=== PATIENT | female | born 2000 | race Caucasian/White ===

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

== ENCOUNTER → 2018-01-09 08:29 | Outpatient (CLI) | payer OTHER, SELFPAY ==
--- NOTE | 2018-01-09 11:55 | TONS_PTH ---
PATIENT: JOSE LUIS AGUILAR LOC: [facility] U#:[id number] AGE/SX: 25/F ROOM: RE01/09/[address]: Dr. Mauricio Voss MD : 2000 BED: DIS: SPEC #: [id number] RECD: 01/09/18 14:56 STATUS: AUGUSTO VERONICA #: [id number] ANTONIO: 01/09/18 11:[address]: Mauricio Voss DEPT: SURGICAL PATHOLOGY RECD BY: Caridad Bowden ENTERED: 01/10/18 09:19 SP TYPE: TONSILS OTHR DR: Dr. Lucio Naik MD [facility] Tissues: Tonsil, NOS Procedures: Surgery Specimen Level III HEADER OPERATION: Tonsillectomy PRE-OP DIAGNOSIS: Peritonsillar abscess, hypertrophy of tonsils, chronic tonsillitis TISSUE SUBMITTED: Tonsils (right tagged with pin) MICROSCOPIC DIAGNOSIS Bilateral tonsils: Reactive lymphoid hyperplasia, consistent with chronic tonsillitis. Focal actinomyces colonization. See comment. DEMARIO:[email or web address] 01/10/18 COMMENT Focal superficial acute inflammation is also noted. MICROSCOPIC DESCRIPTION Slides are reviewed. GROSS DESCRIPTION Received is one container labeled with the patient's name and designated tonsils - pin on right are two tonsils that in aggregate weigh 15.7 gm. The right tonsil has a pin on it and measures 3.5 x 3 x 2 cm. The left tonsil measures 3.8 x 3 x 2 cm. Both tonsils are similar in appearance. The external surfaces are pink-prince, smooth, glistening and somewhat lobulated. Focally they are hemorrhagic, granular and bear cautery artifact. Serial cross sections through the tonsils reveal normal tonsillar architecture. Sections are submitted in two cassettes as follows: 1 - right tonsil, 2 - left tonsil. / DEMARIO:[email or web address] 01/09/18 TC:3 CPT: 74834 x2
== END ==
PROVIDERS: Family Provider Pediatrics; PCP Pediatrics; Visit Provider Otolaryngology
DX: J36 Peritonsillar abscess (principal); J35.01 Chronic tonsillitis
CPT/HCPCS: 88304

== ENCOUNTER 2019-03-16 11:10 | Emergency (ER) | payer OTHER, SELFPAY ==
[2019-03-16 11:12] VITALS: BP 146/98; PULSE 112; RESP 20; TEMP 37.1; O2SAT 98; BMI 33.3
--- NOTE | 2019-03-16 11:17 | ED.RN ---
PER FRIEND AT BEDSIDE HER MOM SAID THAT SHE HAS ACTED THIS WAY WHEN SHE HAS BEEN REALLY DEHYDRATED.
--- NOTE | 2019-03-16 11:29 | ED.RN ---
PER MOM, SHE HAS HAD MULTIPLE EPISODES OFF THIS OCCURRING. IT ONLY HAPPENS WHEN SHE IS DEHYDRATED. WE HAVE BEEN TO MULTIPLE DOCTORS TO INVESTIGATE THIS AND NOTHING SHOWS UP. SHE HAS NOT HAD AN EPISODE IN OVER A YEAR. PER EMS PT BG WAS 90.
--- NOTE | 2019-03-16 11:37 | ED.VISSUMM ---
- ER Visit Summary Date of Service: 03/16/19 Chief Complaint: Decreased responsiveness History of Present Illness: The patient is a 18 F no significant past medical history. According to mom she had problems with dehydration in the past 2 years. Extensive work-up done at the [facility] as an outpatient for similar episodes like she is having a daily she has become less recent onset and will speak and they had a negative work-up she had negative CAT scans of her brain with a negative cardiac work-up along with other tests. Mom states whenever this happens it seems like she is dehydrated. She was at work today and just became less interactive. She had no head injury. She is been eating and drinking well. She has had no nausea, vomiting, diarrhea or fever. She is on no diuretics. Fact the only medication she is on is control. Physical Examination: Young female no acute distress. Vital signs are stable she is afebrile. She does not look septic or toxic. She is in no distress. Clinically she does not look dehydrated. HEENT exam normal. Tongue moist mucous membranes. No trauma or bite garcia. Face normal. Neck nontender no meningismus no lymphadenopathy. Lungs clear to auscultation bilaterally. Heart regular rhythm no murmur. Abdomen soft and nontender. Extremities moves all 4. Calves nontender without edema. She is moving all 4 extremities. Neurologically she is awake and alert. Her eyes are open. She has no focal motor deficits. She will respond to asked specific questions or made to respond but otherwise she is kind of stares looking forward. Clinically I do not feel this is a seizure or postictal state. Test Results: CBC showed a white count 13.5. Hemoglobin 13. No bands. Electrolytes unremarkable gap is 6. Creatinine 0.8 with a normal BUN of 15. No signs of dehydration. Blood sugar slightly low at 70. Emergency Department Course and Treatment: Mom believes this is secondary to dehydration. Clinically she has no reason to be dehydrated nor does she look dehydrated. She has moist mucous membranes. He will be treated with a liter of fluid and will obtain screening labs. Repeat exam patient is improving at 1400 p.m. I went over all test with both parents and patient. I explained to mom the clinic light and think this was secondary to dehydration. I think this may be secondary to an anxiety issue. Treatment Plan: Follow-up with her primary care physician. Disposition: Discharge Impression: Transient mental status change of uncertain etiology This note was generated with [employer] dictation software. It may contain incorrect words, spelling, and punctuation that were not noted in review of the chart prior to signing ED Disposition - Plan for ED Patient: Referrals: Lucio Naik MD [Primary Care Provider] -
[2019-03-16 11:45] LABS: Absolute Lymphocyte Count 4.04 X10^3/uL (0.83-4.51); Absolute Neutrophil Count 8.6 X10^3/uL (2.0-7.7); Basophil# 0.03 X10^3/uL; Basophil% 0.2 % (0-1); Eosinophil# 0.09 X10^3/uL; Eosinophils% 0.7 % (0-5); Hematocrit 41.4 % (37-47); Hemoglobin 13.6 g/dL (12.0-15.0); Lymphocyte # 4.04 X10^3/ul (4.0); Lymphocyte % 29.9 % (19-41); Mean Corp Hgb Conc 32.9 g/dL (32-36); Mean Corpuscular Volume 88.3 fL (81-99); Mean Platelet Vol. 10.7 fl (6.2-12.0); Monocyte# 0.74 X10^3/uL; Monocyte% 5.5 % (0-10); NRBC Flagged by Analyzer 0 % (0-5); Neutrophil # 8.56 X10^3/uL (2.7-7.7); Neutrophil % 63.4 % (47-70); Platelet Count 247 K/mm3 (150-450); RBC Distribution Width CV 12.6 % (11.6-14.6); RBC Distribution Width SD 41.1 fl (35.1-43.9); Red Blood Count 4.69 M/mm3 (4.2-5.4); White Blood Count 13.5 K/mm3 (4.4-11.0)
[2019-03-16 11:57] LABS: Anion Gap 6 (5-15); BUN 15 mg/dL (7-18); Calcium,Total 9.6 mg/dL (8.5-10.1); Chloride 109 mmol/L (98-107); Creatinine, Serum 0.83 mg/dL (0.55-1.02); EST Glomerular Filtration Rate 92 mL/min (>60); Est Glom Filt Rate - Afr Amer 111 mL/min (>60); Estimated Creatinine Clearance 93.36 ml/min; Glucose 70 mg/dL (74-106); Potassium 3.6 mmol/L (3.5-5.1); Sodium Level 139 mmol/L (136-145)
[2019-03-16] MEDS: 0.9% Normal Saline 1,000 ML 1000 ML IV (12:01)
--- NOTE | 2019-03-16 12:03 | ED.RN ---
PT C/O [place]. DR WONG INFORMED. WILL CONTINUE TO MONITOR.
[2019-03-16] MEDS: Acetaminophen 500 MG Tablet 1000 MG PO (12:11)
--- NOTE | 2019-03-16 12:45 | ED.RN ---
PT AMBULATES TO RESTROOM WITH STANDBY ASSIST. PT AMBULATES WITHOUT NOTED DIFFICULTY. PT STILL ONLY ANSWERING YES OR NO QUESTIONS. STUTTERS WHEN TRYING TO SPEAK. MOTHER CONCERNED OF RED TINTED BOWL MOVEMENT. STOOL WITH RED COLOR AND MUCOUS APPEARING, NO BLEEDING NOTED. DR. WONG INFORMED. PT AMBULATES BACK TO ROOM WITHOUT DIFFICULTY, SITS IN BED. MONITOR REPLACED. PARENTS AT BEDSIDE. AWAITING RE-EVAL BY
[2019-03-16 13:17] VITALS: BP 117/91; PULSE 92; RESP 19; O2SAT 99
--- NOTE | 2019-03-16 13:20 | ED.RN ---
PT ABLE TO VERBALIZE NUMBER TO IDENTIFY PAIN IN HER HEAD. VOICES PAIN (2/10). PT AWAITING MD RE-EVAL. PARENTS AT BEDSIDE. VOICES NO NEEDS AT THIS TIME.
--- NOTE | 2019-03-16 14:19 | ED.DEP ---
ED Disposition - Plan for ED Patient: Disposition: Home or Assisted Living Referrals: Lucio Naik MD [Primary Care Provider] - 1-2 Days if not improving Additional Instructions: Plenty of fluids and rest. Make sure she eats something when she goes home. Follow-up with your doctor if not improving return if worse.
[2019-03-16 14:30] VITALS: BP 128/95; PULSE 100; RESP 18; O2SAT 100
--- NOTE | 2019-03-16 14:38 | ED.RN ---
PT AND MOTHER EDUCATED ON WRITTEN AND VERBAL DISCHARGE INSTRUCTIONS AND HOME GOING PRESCRIPTIONS. PT VERBALIZES UNDERSTANDING. EDUCATED TO REST AND NOT DRIVE IF FEELING ILL. IV D/C AND COVERED WITH 2X2 GAUZE AND PAPER TAPE. PT DRESSES SELF AND AMBULATES OUT OF DEPT WITH MOTHER.
== END 2019-03-16 14:31 | disposition home or self-care (01) ==
PROVIDERS: Emergency Provider Emergency Medicine; Family Provider Pediatrics; PCP Pediatrics
DX: R41.82 Altered mental status, unspecified (principal)
CPT/HCPCS: 80048; 85025; 96360; 99285; J7030; A4216

== ENCOUNTER 2019-04-25 18:17 | Emergency (ER) | payer OTHER, SELFPAY ==
[2019-04-25 18:18] VITALS: BP 157/100; PULSE 109; RESP 16; TEMP 36.7; O2SAT 99; BMI 29.2
--- NOTE | 2019-04-25 18:27 | US_ITS ---
STUDY: ABDOMINAL ULTRASOUND - RIGHT UPPER QUADRANT REASON FOR VISIT: Female, 19 years old. Right upper quadrant pain x3 days, comes and goes and is worse after eating TECHNIQUE: Ultrasound evaluation of the right upper quadrant was performed with real-time and static mcdonnell-scale imaging. TECHNICAL QUALITY: Adequate. COMPARISON: None. FINDINGS: Liver: The liver measures 16.3 cm. There is normal echogenicity of the liver. The bile ducts are within normal limits. There is hepatic color flow. The direction of portal flow is hepatopetal. There is no demonstrated mass lesion. Gallbladder: Normal distended gallbladder. The gallbladder wall measures 2 mm. There is a negative sonographic Londono's sign. There is no pericholecystic fluid. There are no gallstones. Common Bile Duct (C.B.D.): The common bile duct measures 3 mm. Pancreas: Normal size of the head, body and tail of the pancreas. There is normal echogenicity of the pancreas. There is no demonstrated pancreatic mass or cyst. Right Kidney: Normal size of the right kidney. The right kidney measures 10.3 x 5.2 x 4.9 cm. Normal renal cortex. The right cortex measures 1.8 cm. There is no demonstrated renal mass or cyst. There is no right hydronephrosis. US/Gallbladder IMPRESSION: Normal right upper quadrant ultrasound examination. Electronically Signed: Balta Kilgore MD at 20:03 EDT , Service support ,
--- NOTE | 2019-04-25 18:28 | ED.DCSUM_ITS ---
- ER Visit Summary Date of Service: 04/25/19 Chief Complaint: Abdominal pain History of Present Illness: The patient is a 19 F who presents with abdominal pain. This started 3 days ago. It sharp in the right upper quadrant. Food makes it worse. She has felt nauseous but has not had any vomiting. She does admit to some diarrhea as well. Denies any urinary symptoms. She denies any history of any stomach or abdominal surgeries. She took nothing for this at home. She denies any fevers. Physical Examination: Vital signs reviewed. HEENT exam unremarkable. Heart is regular rate and rhythm without murmurs. Lungs are clear to auscultation. Abdomen is soft with right upper quadrant tenderness. There is no guarding or rebound. Extremities reveal no edema. Skin exam normal. Neurologic exam normal. Test Results: Lab studies are normal except for chloride of 108. RUQ ultrasound normal Emergency Department Course and Treatment: Patient was given morphine and zofran for pain. workup is negative. I will give the patient bentyl for home. she will monitor her diet and will follow up with her pcp Treatment Plan: [] Disposition: Discharge Impression: RUQ abdominal pain This note was generated with [employer] dictation software. It may contain incorrect words, spelling, and punctuation that were not noted in review of the chart prior to signing ED Disposition - Plan for ED Patient: Referrals: Lucio Naik MD [Primary Care Provider] -
[2019-04-25] MEDS: Morphine 4 MG/ML Syringe IV (19:13)
[2019-04-25] MEDS: Ondansetron 4 MG/2 ML Vial IV (19:13)
[2019-04-25 19:27] LABS: Absolute Lymphocyte Count 4.14 X10^3/uL (0.83-4.51); Basophil# 0.02 X10^3/uL; Basophil% 0.2 % (0-1); Eosinophil# 0.07 X10^3/uL; Eosinophils% 0.6 % (0-5); Hematocrit 39.5 % (37-47); Hemoglobin 12.9 g/dL (12.0-15.0); Lymphocyte # 4.14 X10^3/ul (4.0); Lymphocyte % 37.5 % (19-41); Mean Corp Hgb Conc 32.7 g/dL (32-36); Mean Corpuscular Hgb 29.3 pg (27.0-32.0); Mean Corpuscular Volume 89.8 fL (81-99); Mean Platelet Vol. 10.4 fl (6.2-12.0); Monocyte# 0.74 X10^3/uL; Monocyte% 6.7 % (0-10); NRBC Flagged by Analyzer 0 % (0-5); Neutrophil # 6.02 X10^3/uL (2.7-7.7); Neutrophil % 54.6 % (47-70); POSITIVE MORPHOLOGY YES; Platelet Count 260 K/mm3 (150-450); RBC Distribution Width CV 12.1 % (11.6-14.6); RBC Distribution Width SD 39.8 fl (35.1-43.9)
[2019-04-25 19:29] LABS: Internal QC Validated? YES +Cl - CLEAR BKGD; Pregnancy, Serum, hCG Quali. NEGATIVE Negative
[2019-04-25 19:30] LABS: Differential Indicated SCAN CRITERIA MET
[2019-04-25 19:33] LABS: AST(SGOT) 28 U/L (15-37); Alanine Aminotransfer ALT/SGPT 22 U/L (13-56); Albumin, Serum 3.9 g/dL (3.2-5.0); Alkaline Phosphatase 82 U/L (45-117); Anion Gap 8 (5-15); BUN 15 mg/dL (7-18); BUN/Creat Ratio 18.2 RATIO (10-20); Calcium,Total 9.6 mg/dL (8.5-10.1); Chloride 108 mmol/L (98-107); Creatinine, Serum 0.82 mg/dL (0.55-1.02); EST Glomerular Filtration Rate 93 mL/min (>60); Est Glom Filt Rate - Afr Amer 113 mL/min (>60); Estimated Creatinine Clearance 89.77 ml/min; Glucose 89 mg/dL (74-106); Lipase 99 U/L (73-393); Protein, Total 7.9 g/dL (6.4-8.2); Sodium Level 138 mmol/L (136-145)
[2019-04-25 19:58] LABS: Platelet Estimate ADEQUATE (ADEQ); Reactive Lymphocyte RARE; Red Cell Morphology NORM C+C NORMAL (NORM C&C)
--- NOTE | 2019-04-25 20:27 | ED.DEP ---
ED Disposition - Plan for ED Patient: Disposition: Home or Assisted Living Instructions: ABDOMINAL PAIN, Unknown Cause, (Female) Prescriptions: Dicyclomine HCl [Bentyl] 20 mg PO TIDAC #20 cap Prescription Printed Referrals: Lucio Naik MD [Primary Care Provider] -
[2019-04-25 20:36] VITALS: BP 137/72; PULSE 70; O2SAT 98
== END 2019-04-25 20:38 | disposition home or self-care (01) ==
PROVIDERS: Emergency Provider Emergency Medicine; Family Provider Pediatrics; PCP Pediatrics
DX: R10.11 Right upper quadrant pain (principal); R19.7 Diarrhea, unspecified; R11.2 Nausea with vomiting, unspecified
CPT/HCPCS: 76705; 80053; 83690; 84703; 85025; 96374; 96375; 99285; A4216; J2405

== ENCOUNTER → 2019-10-17 08:04 | Outpatient (CLI) | payer OTHER, SELFPAY ==
--- NOTE | 2019-10-17 08:06 | RAD_ITS ---
PROCEDURE: SMALL BOWEL SERIES DATE OF EXAMINATION: October 17, 2019. INDICATION: Female, 19 years old. Worsening abdominal pain and diarrhea. PHYSICIAN: Dion Mcadams M.D. FLUOROSCOPY TIME (if supplied): (0:21) minutes/seconds TECHNIQUE: Radiographic and fluoroscopic images were taken of the small intestine following the ingestion of barium. COMPARISON: None. FINDINGS: A preliminary supine KUB was obtained. There is an unremarkable bowel gas pattern. Fecal material is present throughout the colon. The osseous structures are normal. The patient orally ingested approximately 12 ounces of thin barium Normal visualized fundus, body, and antrum of the stomach. Normal duodenal bulb, C-loop, and proximal jejunum. Normal visualized mucosal folds of the jejunum and ileum. There are no demonstrated dilatations, strictures, or masses of the small intestine. There is no mass displacement of the loops of small intestine. There is a normal motor pattern with barium reaching the colon within approximately 60 minutes. Spot films under fluoroscopic observation demonstrated a normal terminal ileum and ileocecal valve. RAD/Small Bowel Series Only IMPRESSION: Normal small bowel series. Electronically Signed: Dion Mcadams, at 10:39 EST , Service support ,
== END ==
PROVIDERS: PCP Student in an Organized Health Care Education/Training Program; Referring Provider Nurse Practitioner Adult Health; Visit Provider Nurse Practitioner Adult Health
DX: R10.33 Periumbilical pain (principal)
CPT/HCPCS: 74250

== ENCOUNTER → 2020-11-27 14:13 | Outpatient (CLI) | payer OTHER, SELFPAY | PROVIDERS: PCP Student in an Organized Health Care Education/Training Program; Visit Provider Obstetrics & Gynecology | DX: Z11.3 Encounter for screening for infections with a predominantly sexual mode of transmission (principal) ==

== ENCOUNTER 2021-08-18 06:33 | Emergency (ER) | payer OTHER, SELFPAY ==
[2021-08-18 06:33] VITALS: BP 131/82; PULSE 105; PULSE 123; RESP 23; RESP 28; TEMP 36.9; O2SAT 98; O2SAT 99; BMI 36.6
--- NOTE | 2021-08-18 06:36 | NURSING ---
NO OLD EKGS
--- NOTE | 2021-08-18 06:48 | CT_ITS ---
STUDY: CTA CHEST REASON FOR EXAM: Female, 21 years old. Chest pain RADIATION DOSAGE (If Supplied By Facility): CTDIvol = ( 10.84 ) mGy, DLP = ( 422.21 ) mGycm TECHNIQUE: The examination was performed with the intravenous administration of IV 100mL Isovue-370. Post-processing of the angiographic images was performed, with multiplanar reformation and 3D reconstruction. Individualized dose optimization techniques were used for this CT. COMPARISON: None. FINDINGS: Normal enhancement of the main pulmonary artery and right and left pulmonary arteries. Normal enhancement of the bilateral peripheral pulmonary arteries. There is no demonstrated pulmonary embolism. Normal thoracic aorta and visualized great vessels. There is no demonstrated aortic dissection. Normal heart and pericardium. Normal mediastinum. Normal hilar regions. Normal visualized trachea and bronchi. The lungs are well expanded. Normal pulmonary parenchyma. Normal pleura. Normal chest wall structures. Normal osseous structures. Normal visualized upper abdomen. CT/CTA Chest W/WO Contrast IMPRESSION: Normal CTA chest examination, without a demonstrated pulmonary embolism or arterial dissection. Electronically Signed: Luis Tran MD at 8:03 EST Tel , Service support ,
--- NOTE | 2021-08-18 06:48 | EKG12_ITS ---
Test Reason : Blood Pressure : / mmHG Vent. Rate : 094 BPM Atrial Rate : 094 BPM P-R Int : 146 ms QRS Dur : 080 ms QT Int : 358 ms P-R-T Axes : 021 -10 008 degrees QTc Int : 447 ms Normal sinus rhythm Poor R wave progression Confirmed by YON AHUJA, ERNESTO ([id number]), website/blog editor DARIN BEASLEY ([id number]) on 08/24/2021 8:27:07 AM Referred By: TERRI Confirmed By:ERNESTO MARVIN MD
--- NOTE | 2021-08-18 06:49 | EDS_ITS ---
HPI <Dr. Benton Kelly MD - Last Filed: 08/21/21 07:15> History of Present Illness Chief Complaint: Chest Pain Informant: patient and parent Narrative Narrative: Patient presents with left-sided chest pain. She has had this remotely in the past. She evidently had also epigastric pain in the past. She had extensive evaluation including EGDs and work-up for gallbladder that showed nothing. She states the symptoms went away. Over the last month or so she has noted some more pain on the left side. It tends to worsen after eating but she does not get dyspepsia or acid taste. It got worse last night and went from left breast and radiated up to the upper chest. It did hurt to take a deep breath. She did feel slightly short of breath. It is down a little bit now but still present. Patient has no recent travel surgery immobilization or personal history of DVT or PE. She is on oral control pills that she has been on for years. There is history of pulmonary emboli in remote family members. Her grandfathers sisters and other family members had them. No first-degree family members have had clots. She has not been sick recently. She is not coughing or febrile. No nasal drainage. No nausea vomiting or diarrhea. [facility] <Dr. Benton Kelly MD - Last Filed: 08/21/21 07:15> [facility] Medical History Chest pain, unspecified Epilepsy Shortness of breath Syncope and collapse Home Medications dicyclomine 20 mg PO TIDAC #20 cap 04/25/19 [Rx Last Taken Unknown] L norgest/e.estradiol-e.estrad [Ashlyna] tab 08/18/21 [History Last Taken Unknown] folic acid 08/18/21 [History Last Taken Unknown] levetiracetam 750 mg PO BID 08/18/21 [History Last Taken Unknown] Allergy/AdvReac Type Severity Reaction Status Date / Time No Known Allergies Allergy Verified 04/25/19 18:20 Family History Mother Hypertension Grandmother Hypertension Social History Smoking Status: Never smoker alcohol intake: never substance use type: does not use caffeine: Yes Type: coffee Number of servings: 1 what type of physical activity do you participate in: none seatbelt use: always do you feel safe at home: Yes ROS <Dr. Benton Kelly MD - Last Filed: 08/21/21 07:15> ROS ED Constitutional Constitutional ED: Denies chills or fever(s) Eyes Eyes: Denies change in vision ENT ENT ED: Denies rhinorrhea or sore throat Cardiovascular Cardiovascular: Reports chest pain, racing heartbeat and other Details: Patient has noted that recently her heart rate has been fast on her apple watch. Respiratory/Chest Respiratory/Chest: Reports dyspnea; Denies cough or sputum Gastrointestinal Gastrointestinal: Denies nausea or vomiting Genitourinary Genitourinary ED: Denies dysuria Musculoskeletal Musculoskeletal: Denies neck pain Integumentary Denies rash Neurologic Neurologic: Denies headache(s), paresthesias or weakness Endocrine Endocrinology: Denies polydipsia or polyuria Hematologic/Lymphatic Hematologic/Lymphatic: Denies easy bleeding or easy bruising Allergic/Immunologic Allergic/Immunologic ED: Denies urticaria EXAM <Dr. Benton Kelly MD - Last Filed: 08/21/21 07:15> Physical Exam Const Vital Signs: 08/18/21 06:33 08/18/21 06:53 08/18/21 07:43 Temperature 98.5 F Temperature Source Temporal Pulse Rate 105 H 89 Respiratory Rate 28 H 16 Blood Pressure 131/82 H 126/78 H Blood Pressure Mean 98 94 Pulse Ox 98 99 Oxygen Delivery Method Room Air Room Air Room Air Patient does have a heart rate that varies anywhere from 105-147 while I am in the room. Her respiratory rate is from about 20-27. Her saturations are normal. She does look to be breathing just slightly heavier than normal. However, she also gets anxious that might be contributing to this. Positive well nourished and well developed General Appearance ED: well developed and NAD HEENT normocephalic and atraumatic Eyes General Eye ED: Negative for pale conjunctiva Neck no JVD Chest Wall inspection of chest normal Chest Narrative: Patient has some very mild nonspecific chest wall tenderness but it is diffuse and not in just the area of pain. Resp normal respiratory effort Resp Narrative: Lungs are clear bilaterally. I hear no wheezing. Effort and Inspection: Negative for respiratory distress Auscultation: Negative for rales, rhonchi or wheezes Cardio regular rhythm Rate: tachycardic GI normal to inspection, nondistended, normoactive bowel sounds, soft to palpation and non-tender Extremity normal to inspection General Extremety ED: Negative for edema, pulses abnormal or tenderness General Extremity: Negative for edema or pulses abnormal Neuro Sensorium / Orientation: awake and alert Psych Psych Narrative: Mildly flat affect. Skin no rashes or lesions noted <Dr. Lucas Medeiros MD - Last Filed: 08/18/21 08:32> Physical Exam Const Vital Signs: 08/18/21 06:33 08/18/21 06:53 08/18/21 07:43 Temperature 98.5 F Temperature Source Temporal Pulse Rate 105 H 89 Respiratory Rate 28 H 16 Blood Pressure 131/82 H 126/78 H Blood Pressure Mean 98 94 Pulse Ox 98 99 Oxygen Delivery Method Room Air Room Air Room Air MDM <Dr. Benton Kelly MD - Last Filed: 08/21/21 07:15> [facility] MDM Narrative Medical decision making narrative: Patient will have blood work done. I will order CTA of the chest. This patient is on control. She is tachycardic and tachypneic but not hypoxic. Her symptoms have been going on for a while. This could make a D-dimer negative. Patient is turned over to the oncoming physician pending results. Lab Data Labs: Laboratory Results - last 24 hr 08/18/21 08/18/21 06:45 06:45 WBC 20.9 H RBC 4.54 Hgb 13.5 Hct 40.2 MCV 88.5 MCH 29.7 MCHC 33.6 RDW Std Deviation 40.6 RDW Coeff of Carlos 12.5 Plt Count 286 MPV 10.8 Immature Gran % (Auto) 0.400 Neut % (Auto) 85.1 H Lymph % (Auto) 10.1 L [place] % (Auto) 4.3 Eos % (Auto) 0.0 Baso % (Auto) 0.1 Absolute Neuts (auto) 17.8 H Absolute Lymphs (auto) 2.12 Nucleated RBC % 0 Sodium 140 Potassium 3.9 Chloride 109 H Carbon Dioxide 21.0 Anion Gap 10 BUN 11 Creatinine 0.86 Estim Creat Clear Calc 84.16 Est GFR (MDRD) Af Amer 105 Est GFR (MDRD) Non-Af 87 BUN/Creatinine Ratio 12.8 Glucose 104 Calcium 9.2 Troponin I High Sens < 3 L Radiography Diagnostic Testing: Clinical Impression(s) from Imaging Studies Chest CTA 08/18/21 06:48 IMPRESSION: Normal CTA chest examination, without a demonstrated pulmonary embolism or arterial dissection. Electronically Signed: Luis Tran MD at 8:03 EST Tel , Service support , <Dr. Lucas Medeiros MD - Last Filed: 08/18/21 08:32> [facility] Lab Data Attestation: I reviewed the patient's lab results. Lab results narrative: White count is elevated at 20.9. Will speak with patient return if she has any GI or symptoms. Basic metabolic panel and troponin are both normal. Based on the troponin I can conclude with the 100% negative predictive value that this is not cardiac in etiology. The CTA was reviewed by me and there is no evidence of any lung parenchymal disease to suggest pneumonia and would explain the elevated white count at 20.9 thousand. Patient apparently has had diarrhea for 1 to 2 months. She has not noted any blood or mucus. She states she has an appointment with her primary care physician next week Dr. Madden. She was informed the cause of her pain is unknown. She presently is unable to give a stool specimen. Labs: Laboratory Results - last 24 hr 08/18/21 08/18/21 06:45 06:45 WBC 20.9 H RBC 4.54 Hgb 13.5 Hct 40.2 MCV 88.5 MCH 29.7 MCHC 33.6 RDW Std Deviation 40.6 RDW Coeff of Carlos 12.5 Plt Count 286 MPV 10.8 Immature Gran % (Auto) 0.400 Neut % (Auto) 85.1 H Lymph % (Auto) 10.1 L [place] % (Auto) 4.3 Eos % (Auto) 0.0 Baso % (Auto) 0.1 Absolute Neuts (auto) 17.8 H Absolute Lymphs (auto) 2.12 Nucleated RBC % 0 Sodium 140 Potassium 3.9 Chloride 109 H Carbon Dioxide 21.0 Anion Gap 10 BUN 11 Creatinine 0.86 Estim Creat Clear Calc 84.16 Est GFR (MDRD) Af Amer 105 Est GFR (MDRD) Non-Af 87 BUN/Creatinine Ratio 12.8 Glucose 104 Calcium 9.2 Troponin I High Sens < 3 L Radiography Diagnostic Testing: Clinical Impression(s) from Imaging Studies Chest CTA 08/18/21 06:48 IMPRESSION: Normal CTA chest examination, without a demonstrated pulmonary embolism or arterial dissection. Electronically Signed: Luis Tran MD at 8:03 EST Tel , Service support , Discharge Plan Triage Chief Complaint: Chest Pain ED Provider: Benton Kelly Dx/Rx/DC Orders Clinical Impression: Chest pain, pleuritic, Leukocytosis, Chronic diarrhea of unknown origin, Paroxysmal sinus tachycardia Instructions: ED Chest Pain, Uncertain Cause, ED Diarrhea, Unknown Cause Prescriptions: No Action dicyclomine 10 MG capsule 20 mg PO TIDAC Qty: 20 RF: 0 levetiracetam 750 mg tablet 750 mg PO BID RF: 0 L norgest/e.estradiol-e.estrad [Ashlyna] 0.15 mg-30 mcg (84)/10 mcg (7) tablets,dose pack,3 month RF: 0 folic acid RF: 0 Primary Care Provider: Foster Madden Referrals: Foster Madden, DO [Primary Care Provider] - Keep Brenda appointment (Mahogany has an elevated white count and reports chronic diarrhea. This will need further work-up as an outpatient.) Disposition Disposition: Home, Self Care Discharge Date/Time: 08/18/21 08:38
[2021-08-18] MEDS: Aspirin 81 MG TAB.CHEW 324 MG PO (06:57)
[2021-08-18 07:07] LABS: Absolute Lymphocyte Count 2.12 X10^3/uL (0.83-4.51); Absolute Neutrophil Count 17.8 X10^3/uL (2.0-7.7); Basophil# 0.03 X10^3/uL; Basophil% 0.1 % (0-1); Eosinophil# 0.01 X10^3/uL; Hematocrit 40.2 % (37-47); Hemoglobin 13.5 g/dL (12.0-15.0); Lymphocyte # 2.12 X10^3/ul (0.83-4.51); Lymphocyte % 10.1 % (19-41); Mean Corp Hgb Conc 33.6 g/dL (32-36); Mean Corpuscular Hgb 29.7 pg (27.0-32.0); Mean Corpuscular Volume 88.5 fL (81-99); Mean Platelet Vol. 10.8 fl (6.2-12.0); Monocyte# 0.91 X10^3/uL; Monocyte% 4.3 % (0-10); NRBC Flagged by Analyzer 0 % (0-5); Neutrophil # 17.78 X10^3/uL (2.7-7.7); Neutrophil % 85.1 % (47-70); Platelet Count 286 K/mm3 (150-450); RBC Distribution Width CV 12.5 % (11.6-14.6); RBC Distribution Width SD 40.6 fl (35.1-43.9); Red Blood Count 4.54 M/mm3 (4.2-5.4); White Blood Count 20.9 K/mm3 (4.4-11.0)
[2021-08-18 07:21] LABS: Anion Gap 10 (5-15); BUN 11 mg/dL (7-18); BUN/Creat Ratio 12.8 RATIO (10-20); Calcium,Total 9.2 mg/dL (8.5-10.1); Chloride 109 mmol/L (98-107); Creatinine, Serum 0.86 mg/dL (0.55-1.02); EST Glomerular Filtration Rate 87 mL/min (>60); Est Glom Filt Rate - Afr Amer 105 mL/min (>60); Estimated Creatinine Clearance 84.16 ml/min; Glucose 104 mg/dL (74-106); Potassium 3.9 mmol/L (3.5-5.1); Sodium Level 140 mmol/L (136-145); Troponin-I HS < 3 pg/mL (3.0-54.0)
[2021-08-18 07:43] VITALS: BP 126/78; PULSE 89; RESP 16; O2SAT 99
[2021-08-18 08:37] VITALS: BP 122/89; PULSE 89; RESP 16; O2SAT 100
== END 2021-08-18 08:38 | disposition home or self-care (01) ==
PROVIDERS: Emergency Provider Emergency Medicine; PCP Student in an Organized Health Care Education/Training Program
DX: R07.81 Pleurodynia (principal); R19.7 Diarrhea, unspecified; R00.0 Tachycardia, unspecified; D72.829 Elevated white blood cell count, unspecified; R06.02 Shortness of breath; G40.909 Epilepsy, unspecified, not intractable, without status epilepticus; Z86.711 Personal history of pulmonary embolism
CPT/HCPCS: 71275; 80048; 84484; 85025; 93005; 99284; Q9967

== ENCOUNTER 2021-09-28 05:48 | Day surgery (SDC) | payer OTHER, SELFPAY ==
--- NOTE | 2021-09-28 06:05 | HP.PCM_ITS ---
History and Physical Date of Admission: 09/28/21 Intake Visit Reasons: ABDOMINAL PAIN Chief Complaint: abd pain Annual Giving Director Required: No Is patient in pain?: Yes (upper abd) Allergies No Known Allergies Allergy (Verified 09/23/21 08:00) Medications dicyclomine 20 mg PO TIDAC #20 cap 04/25/19 [Rx Confirmed 09/23/21] L norgest/e.estradiol-e.estrad [Ashlyna] tab 08/18/21 [History Confirmed 09/23/21] folic acid 08/18/21 [History Confirmed 09/23/21] levetiracetam 750 mg PO BID 08/18/21 [History Confirmed 09/23/21] famotidine 20 mg tablet ea PO 09/23/21 [History Confirmed 09/23/21] PFSH Medical History Chest pain, unspecified Epilepsy Shortness of breath Syncope and collapse Family History Mother Hypertension Grandmother Hypertension Social History Smoking Status: Never smoker alcohol intake: never substance use type: does not use caffeine: Yes Type: coffee Number of servings: 1 what type of physical activity do you participate in: none seatbelt use: always do you feel safe at home: Yes HPI HPI HPI: JOSE LUIS AGUILAR, is a 21 F who presents to the office today for surgical consultation regarding abdominal pain. The patient is referred by Dr. Foster Madden and a written copy of my surgical consult and recommendations will return to her. By report the patient is complaining of both left upper quadrant and right upper quadrant abdominal pain. This apparently is worse postprandially. The patient has a past medical history of globus sensation and epilepsy and concussion and chronic abdominal pain issues and infectious mononucleosis. To assist with her evaluation Dr. Irineo Mcarthur gastroenterology on October 01, 2019 performed an upper endoscopy. This was performed for the diagnosis of upper abdominal pain and dyspepsia. The upper endoscopy by report was visually normal. Antral biopsy showed chronic inactive gastritis. I believe that H. pylori was negative. At some point in the past she has been prescribed pantoprazole 20 mg daily. She had not not been taking that for period of time but then resumed but still complains of a constant discomfort. She additionally been prescribed dicyclomine 10 mg 3 times a day. Laboratory as of July 03, 2021 showed a white count of 10,000 with a hemoglobin 13.6 medical 40.8 platelet count 270,000. Liver function tests were normal. BUN was 14 and creatinine 0.75. By report she has had a recent H. pylori exam also negative. The patient is also complaining of loose stools. A simultaneous referral was made to functional medicine and to general surgery. She was seen in the emergency room August 18, 2021 with complaint of left- sided chest pain. The history she provided included previous evaluation with upper endoscopy and gallbladder work-up which by report was normal. She was afebrile. White blood cell count was 20.9 with a hemoglobin of 13.5 hematocrit 40.2 platelet count 286,000. CTA of the chest was obtained which was unremarkable. She apparently complained of ongoing diarrhea. A stool specimen could not be provided however. The explanation for the elevated white count could not be determined. There is felt to be no evidence for pneumonia. Saurabh pardo was for back to her primary care physician. At the [facility] on June 25, 2021 the patient had a right upper quadrant ultrasound. Liver pancreas biliary system normal. Common bile duct 4 mm. Gallbladder measured 11.1 cm in length with multiple folds. No cholelithiasis. Kidneys and spleen unremarkable. Based upon the measurements the gallbladder was felt to been enlarged. Looking back at previous information provided by the [facility]. Regina Ribeiro had ordered a small bowel series on October 17, 2019. This was felt to be normal. A previous gallbladder ultrasound performed at the [facility] April 25, 2019 was felt to be normal. The gallbladder at that time was of normal size. The patient had a previous abdominal CT June 24, 2016 at the [facility]. This was a noncontrasted exam and it was normal We do not have all of her [facility] records. It is reported to us today that she has had no less than 2 previous hepatobiliary scans and both of those were reported to be normal. She notes that her stools are somewhat thin. She states that she does not have any abdominal pain at this time. Whereas the pain previously was mostly postprandially now it can occur intermittently. She has not had any bright red blood per rectum or melena. She does not have any food fear. She has not previously had a colonoscopy. She is specifically referred for consideration of pursuing that evaluation. ROS General General: No weight change, appetite, fatigue, colon cancer, breast cancer or weakness HEENT HEENT: No difficulty swallowing, eye injury, eye surgery, swollen glands or hoarseness Endo Endocrine: No thyroid disease, diabetes mellitus, thyroid cancer, Hair loss, heat intolerance or cold intolerance Skin Skin: No rash or changing moles Breast Breast: No left breast lump, right breast lump, nipple discharge, breast pain, abnormal mammogram, abnormal US or breast enlargement Musc Musculoskeletal: No back problems, arthritis, rheumatoid arthritis, gout or joint pain Cardio Cardiovascular: No murmur, pacemaker, heart disease, atrial fibrillation, high blood pressure, heart attack, heart stent, palpitations, shortness of breat with exertion or chest pain Psych Psychiatric: No depression, anxiety or hearing voices Resp Respiratory: No shortness of breath, No sleep apnea, No cough, No COPD, No asthma, No emphysema and No wheezing Gastro Gastrointestinal: Yes abdominal pain, No nausea or vomiting, Yes diarrhea, No constipation, No blood in stool, No acid reflux, No hemorrhoids, No ulcers, No gallbladder problem and No black,tarry stools Raul Hematologic: No blood thinners, No blood disorders, No bleeding, No anemia and No blood clots Neuro Neurologic: No system reviewed and no additional complaints, except as documented, No as per HPI, No abnormal gait, No abnormal hearing, No abnormal movements, No abnormal speech, No behavioral changes, No burning sensations, No confusion, No convulsions, No disequilibrium, No dizziness, No localized weakness, No frequent falls, No headache(s), No lack of coordination, No loss of vision, No memory loss, No numbness, No other visual disturbances, No radicular pain, No restless legs, No sensory deficit, No syncope, No tingling, No tremor(s), No weakness and No other Exam Const General: cooperative, comfortable and no acute distress Nutritional Appearance: obese Orientation: alert and awake [facility] Head: normal to inspection Eyes General: appearance normal, both eyes and all related structures Resp Effort & Inspection: normal respiratory effort Auscultation: clear to auscultation bilaterally Cardio Rate: regular rate Rhythm: regular rhythm GI Palpation: soft and no hepatosplenomegaly Skin General: no rashes or lesions noted Neuro General: patient alert and patient awake Extrem General: no calf tenderness Psych Appearance: grossly normal Assessment and Plan Assessment and Plan (1) Chronic abdominal pain: Status: Chronic Plan - Dr. Antelmo Alamo MD: 21-year-old female presents with her mother today. The patient has had years of abdominal pain. She has not had a previous colonoscopy. A request has been made to pursue a colonoscopy and I have discussed with the patient the technique, benefit, risk, alternatives. I would anticipate performing random colonic biopsies inspecting for possible microcytic colitis. She has had an opportunity to ask and have questions answered. At this time unfortunately I am not detecting a surgical etiology to her pain. Copy: Dr. Foster Alamo M.D., F.A.C.S. I have re-examined the patient. There are no clinical changes since date of exam. Antelmo Alamo M.D., F.A.C.S.
[2021-09-28 06:24] VITALS: BP 122/85; PULSE 97; RESP 16; TEMP 36.5; O2SAT 100; BMI 34.7
[2021-09-28] MEDS: Lactated Ringers 1,000 ML 15 ML IV (06:29)
--- NOTE | 2021-09-28 07:00 | COLBX_PTH ---
PATIENT: JOSE LUIS AGUILAR LOC: EN U#:[id number] AGE/SX: 21/ ROOM: RE09/28/[address]: Dr. Antelmo Alamo MD : 2000 BED: DIS: 09/28/2021 SPEC #: [id number] RECD: 09/28/21 14:13 STATUS: AUGUSTO VERONICA #: [id number] ANTONIO: 09/28/21 07:[address]: Antelmo Alamo DEPT: SURGICAL PATHOLOGY RECD BY: Sandy Fajardo ENTERED: 09/29/21 09:43 SP TYPE: COLON BX OTHR DR: Dr. Foster Madden, Tissues: COLON BIOPSY Procedures: Surgery Specimen Level IV HEADER OPERATION: Colonoscopy (MAC) with biopsy PRE-OP DIAGNOSIS: Chronic abdominal pain TISSUE SUBMITTED: Random colon biopsy MICROSCOPIC DIAGNOSIS Colon, random biopsy: No pathologic change. AM:jayshree 09/30/2021 MICROSCOPIC DESCRIPTION Slides are reviewed. GROSS DESCRIPTION Received in fixative is one container labeled with the patient's name and designated random colon biopsy. The specimen consists of multiple irregular fragments of light prince soft tissue that in aggregate measure 1 x 0.5 x 0.1 cm. The specimen is totally submitted in one cassette. / AM:jayshree 09/29/2021 TC:5 CPT: 20444
[2021-09-28 07:20] LABS: Internal QC Validated? YES +Cl - CLEAR BKGD; Pregnancy, Serum, hCG Quali. NEGATIVE Negative
[2021-09-28 07:45] VITALS: BP 122/85; BP 156/102; PULSE 85; RESP 17; TEMP 36.6; O2SAT 99
--- NOTE | 2021-09-28 07:46 | OP.COLON_ITS ---
Patient Name: Mahogany Neil Procedure Date: 09/28/2021 7:01 AM Date of : 2000 Age: 21 Procedure: Colonoscopy Indications: Abdominal pain in the left upper quadrant, Abdominal pain in the right upper quadrant, Clinically significant diarrhea of unexplained origin Providers: Antelmo Alamo MD Referring MD: Antelmo Alamo MD Medicines: See the Anesthesia note for documentation of the administered medications Patient Profile: Last Colonoscopy: none. The patient's first colonoscopy is today. Complications: No immediate complications. Procedure: Pre-Anesthesia Assessment: - Prior to the procedure, a History and Physical was performed, and patient medications and allergies were reviewed. The patient's tolerance of previous anesthesia was also reviewed. The risks and benefits of the procedure and the sedation options and risks were discussed with the patient. All questions were answered, and informed consent was obtained. Prior Anticoagulants: The patient has taken no previous anticoagulant or antiplatelet agents. ASA Grade Assessment: II - A patient with mild systemic disease. After reviewing the risks and benefits, the patient was deemed in satisfactory condition to undergo the procedure. After I obtained informed consent, the scope was passed under direct vision. Throughout the procedure, the patient's blood pressure, pulse, and oxygen saturations were monitored continuously. The colonoscope was introduced through the anus and advanced to the cecum, identified by appendiceal orifice and ileocecal valve. The colonoscopy was performed without difficulty. The patient tolerated the procedure well. The quality of the bowel preparation was good. The ileocecal valve and the appendiceal orifice were photographed. Scope In: 7:26:49 AM Scope Withdrawal Time 0 hours 7 minutes 11 seconds Scope Out: 7:41:10 AM Total Procedure Duration Time 0 hours 14 minutes 21 seconds Findings: The perianal and digital rectal examinations were normal. The colon (entire examined portion) appeared normal. Biopsies for histology were taken with a cold forceps from the entire colon for evaluation of microscopic colitis. Impression: - The entire examined colon is normal. Biopsied. Recommendation: - Discharge patient to home. - Resume previous diet. - Continue present medications. - Repeat colonoscopy at age 43. - Telephone my office for pathology results in 1 week. Procedure Code(s): --- Professional --- 82309, Colonoscopy, flexible; with biopsy, single or multiple Diagnosis Code(s): --- Professional --- R10.12, Left upper quadrant pain R10.11, Right upper quadrant pain R19.7, Diarrhea, unspecified CPT copyright 2017 [employer]. All rights reserved. The codes documented in this report are preliminary and upon reinsurance clerk review may be revised to meet current compliance requirements. Antelmo Alamo MD 09/28/2021 7:45:59 AM This report has been signed electronically. Number of Addenda: 0 Note Initiated On: 09/28/2021 7:01 AM
--- NOTE | 2021-09-28 07:47 | OP.CCLET_ITS ---
09/28/2021 Foster Madden [address] [place] [address] Re : Colonoscopy procedure for Mahogany Neil Dear Dr. Madden This procedure was performed on Tuesday, September 28, 2021. My impressions and recommendations are as follows: Impressions : - The entire examined colon is normal. Biopsied. Recommendations : - Discharge patient to home. - Resume previous diet. - Continue present medications. - Repeat colonoscopy at age 43. - Telephone my office for pathology results in 1 week. My findings are described in the full procedure note, which is enclosed. If I can be of further assistance, please feel free to contact me at Doctor phone number(s): Work: . Sincerely, Antelmo Alamo MD 09/28/2021 7:45:59 AM This report has been signed electronically.
[2021-09-28 07:50] VITALS: BP 104/67; BP 122/85; PULSE 72; RESP 16; O2SAT 100
[2021-09-28 07:55] VITALS: BP 104/70; BP 122/85; PULSE 68; RESP 17; O2SAT 100
[2021-09-28 08:01] VITALS: BP 105/67; BP 122/85; PULSE 66; RESP 17; TEMP 36.5; O2SAT 100
[2021-09-28 08:13] VITALS: BP 122/85
== END 2021-09-28 23:59 | disposition home or self-care (01) ==
LOC: EN 05:48 → AC 05:49
PROVIDERS: Anesthesiology; PCP Student in an Organized Health Care Education/Training Program; Referring Provider Surgery; Visit Provider Surgery
PROC: 0DJD8ZZ Inspection of Lower Intestinal Tract, Via Natural or Artificial Opening Endoscopic (ICD-10-PCS; CPT 45378; principal; 2021-09-28 06:55)
DX: R10.12 Left upper quadrant pain (principal); G40.909 Epilepsy, unspecified, not intractable, without status epilepticus; R10.11 Right upper quadrant pain; R19.7 Diarrhea, unspecified; E66.9 Obesity, unspecified; K21.9 Gastro-esophageal reflux disease without esophagitis; Z68.34 Body mass index [BMI] 34.0-34.9, adult; Z79.899 Other long term (current) drug therapy
CPT/HCPCS: 45380; 84703; 87426; 88305; C9803; J7120; J2405

== ENCOUNTER → 2021-12-29 | Outpatient (CLI) | payer OTHER, SELFPAY ==
--- NOTE | 2021-12-29 10:19 | NM_ITS ---
CLINICAL: Abdominal pain GASTRIC EMPTYING-SULFUR COLLOID TECHNIQUE: The patient was orally administered 1.1 mCi of Tc-sulfur colloid in oatmeal. Gamma camera imaging acquisitions at 1-60 minutes post radiopharmaceutical administration was performed. COMPARISON STUDIES : NM - None. CR - Not available for review at this time. CT - Not available for review at this time. MR - Not available for review at this time. FINDINGS: There is normal filling and emptying of the stomach. No gastroesophageal reflux with normal passage into the small bowel. T 1/2 measures 54 minutes, within normal limits. NM/Gastric Emptying Study IMPRESSION: Normal gastric emptying nuclear medicine scan. Electronically Signed: Júnior Coelho MD ([place]) at 8:31 EDT ,
== END | disposition home or self-care (01) ==
LOC: NM 10:18
PROVIDERS: PCP Student in an Organized Health Care Education/Training Program; Referring Provider Internal Medicine Gastroenterology; Visit Provider Internal Medicine Gastroenterology
DX: R10.9 Unspecified abdominal pain (principal); G89.29 Other chronic pain
CPT/HCPCS: 78264; A9541

== ENCOUNTER → 2022-01-20 | Outpatient (CLI) | payer OTHER, SELFPAY ==
[2022-01-20 14:27] LABS: Absolute Lymphocyte Count 3.31 X10^3/uL (0.83-4.51); Absolute Neutrophil Count 6.2 X10^3/uL (2.0-7.7); Basophil# 0.03 X10^3/uL; Basophil% 0.3 % (0-1); Hematocrit 43.3 % (37-47); Hemoglobin 14.4 g/dL (12.0-15.0); Lymphocyte # 3.31 X10^3/ul (0.83-4.51); Lymphocyte % 32.5 % (19-41); Mean Corp Hgb Conc 33.3 g/dL (32-36); Mean Corpuscular Hgb 29.9 pg (27.0-32.0); Mean Platelet Vol. 10.3 fl (6.2-12.0); Monocyte# 0.55 X10^3/uL; Monocyte% 5.4 % (0-10); NRBC Flagged by Analyzer 0 % (0-5); Neutrophil # 6.15 X10^3/uL (2.7-7.7); Neutrophil % 60.5 % (47-70); Platelet Count 270 K/mm3 (150-450); RBC Distribution Width CV 12.2 % (11.6-14.6); RBC Distribution Width SD 40.4 fl (35.1-43.9); Red Blood Count 4.81 M/mm3 (4.2-5.4); White Blood Count 10.2 K/mm3 (4.4-11.0)
[2022-01-20 14:39] LABS: Erythrocyte Sedimentation Rate 7 mm/hr (0-30)
[2022-01-20 14:44] LABS: D-Dimer Quantitative (DVT/PE) < 0.27 FEU/ug/m (0.27-0.49)
[2022-01-20 15:26] LABS: CRP < 2.90 mg/L (0.0-3.0); Free T3 3.2 pg/mL (2.18-3.98); LDH 189 U/L (84-246); T4 Free Direct 0.92 ng/dL (0.76-1.46); Thyroid Stim Hormone (TSH) 2.57 uIU/mL (0.358-3.74)
[2022-01-22 17:07] LABS: Anti-Centromere B Ab <0.2 AI (0.0-0.9); Anti-Chromatin <0.2 AI (0.0-0.9); Anti-Jo <0.2 AI (0.0-0.9); Anti-Scleroderma-70 AB <0.2 AI (0.0-0.9); RNP Ab 0.2 AI (0.0-0.9); SJOGREN'S Anti-SS-A test < 0.2 AI (0.0-0.9); SJOGREN'S Anti-SS-B test < 0.2 AI (0.0-0.9); Smith Ab <0.2 AI (0.0-0.9)
[2022-01-22 20:44] LABS: Anti-dsDNA Ab <1 IU/mL (0-9)
[2022-01-29 09:15] LABS: Cytoplasmic Ab (C-ANCA) <1:20 titer (Neg:<1:20); Immunoglobulin A 150 mg/dL (87-352); Immunoglobulin E 22 IU/mL (6-495); Immunoglobulin G 1066 mg/dL (586-1602); Immunoglobulin M 77 mg/dL (26-217); Protein S, Free 123 % (61-136)
[2022-02-01 08:55] LABS: Antithrombin 3 Function 106 % (75-135); Perinuclear Ab (P-ANCA) <1:20 titer (Neg:<1:20); Protein C Antigen 93 % (60-150); Protein S, Total 105 % (60-150)
== END | disposition home or self-care (01) ==
LOC: LAB 14:10
PROVIDERS: PCP Student in an Organized Health Care Education/Training Program; Referring Provider Internal Medicine Gastroenterology; Visit Provider Internal Medicine Gastroenterology
DX: R10.9 Unspecified abdominal pain (principal); G89.29 Other chronic pain; R06.02 Shortness of breath; R07.9 Chest pain, unspecified
CPT/HCPCS: 36415; 81241; 82784; 82785; 83615; 84439; 84443; 84481; 85025; 85300; 85302; 85305; 85306; 85379; 85652; 86140; 86225; 86235; 86256

== ENCOUNTER → 2022-04-09 | Outpatient (CLI) | payer OTHER, SELFPAY ==
[2022-04-09 17:10] LABS: Amylase 71 U/L (25-115); Lipase 101 U/L (73-393)
[2022-04-15 13:08] LABS: Beef <0.10 kU/L (Class 0); Corn <0.10 kU/L (Class 0); Egg, Whole <0.10 kU/L (Class 0); Milk (Cow) 0.11 kU/L (Class 0/I); Peanut <0.10 kU/L (Class 0); Pork <0.10 kU/L (Class 0); Soybean <0.10 kU/L (Class 0); Wheat <0.10 kU/L (Class 0)
[2022-04-16 11:29] LABS: Chocolate <0.10 kU/L (Class 0)
== END | disposition home or self-care (01) ==
LOC: LAB 14:51
PROVIDERS: PCP Student in an Organized Health Care Education/Training Program; Visit Provider Internal Medicine Gastroenterology
DX: R10.9 Unspecified abdominal pain (principal); G89.29 Other chronic pain
CPT/HCPCS: 36415; 82150; 83690; 86003; 86005

== ENCOUNTER → 2022-05-24 | Outpatient (CLI) | payer OTHER, SELFPAY ==
[2022-05-24 16:33] LABS: Absolute Lymphocyte Count 3.42 X10^3/uL (0.83-4.51); Absolute Neutrophil Count 6.5 X10^3/uL (2.0-7.7); Basophil# 0.03 X10^3/uL; Basophil% 0.3 % (0-1); Eosinophil# 0.13 X10^3/uL; Eosinophils% 1.2 % (0-5); Erythrocyte Sedimentation Rate 7 mm/hr (0-30); Hematocrit 37.1 % (37-47); Hemoglobin 12.5 g/dL (12.0-15.0); Lymphocyte # 3.42 X10^3/ul (0.83-4.51); Lymphocyte % 31.5 % (19-41); Mean Corp Hgb Conc 33.7 g/dL (32-36); Mean Corpuscular Hgb 30.2 pg (27.0-32.0); Mean Corpuscular Volume 89.6 fL (81-99); Mean Platelet Vol. 10.8 fl (6.2-12.0); Monocyte# 0.74 X10^3/uL; Monocyte% 6.8 % (0-10); NRBC Flagged by Analyzer 0 % (0-5); Neutrophil # 6.49 X10^3/uL (2.7-7.7); Neutrophil % 59.9 % (47-70); Platelet Count 266 K/mm3 (150-450); RBC Distribution Width CV 12.4 % (11.6-14.6); RBC Distribution Width SD 40.9 fl (35.1-43.9); Red Blood Count 4.14 M/mm3 (4.2-5.4); White Blood Count 10.8 K/mm3 (4.4-11.0)
[2022-05-24 17:09] LABS: ALB/GLOB Ratio 1.1 RATIO (0.9-2.4); AST(SGOT) 18 U/L (15-37); Alanine Aminotransfer ALT/SGPT 28 U/L (13-56); Albumin, Serum 3.9 g/dL (3.2-5.0); Alkaline Phosphatase 79 U/L (45-117); Anion Gap 5 (5-15); BUN 16 mg/dL (7-18); BUN/Creat Ratio 20.4 RATIO (10-20); CRP < 2.90 mg/L (0.0-3.0); Calcium,Total 9.3 mg/dL (8.5-10.1); Chloride 108 mmol/L (98-107); Creatinine, Serum 0.78 mg/dL (0.55-1.02); EST Glomerular Filtration Rate 96 mL/min (>60); Est Glom Filt Rate - Afr Amer 116 mL/min (>60); Globulin 3.6 g/dL (2.2-4.2); Glucose 90 mg/dL (74-106); LDH 169 U/L (84-246); Potassium 3.7 mmol/L (3.5-5.1); Protein, Total 7.5 g/dL (6.4-8.2); Sodium Level 140 mmol/L (136-145)
[2022-05-26 13:07] LABS: Anti-Centromere B Ab <0.2 AI (0.0-0.9); Anti-Chromatin <0.2 AI (0.0-0.9); Anti-Jo <0.2 AI (0.0-0.9); Anti-Scleroderma-70 AB <0.2 AI (0.0-0.9); RNP Ab 0.2 AI (0.0-0.9); SJOGREN'S Anti-SS-A test < 0.2 AI (0.0-0.9); SJOGREN'S Anti-SS-B test < 0.2 AI (0.0-0.9); Smith Ab <0.2 AI (0.0-0.9)
[2022-05-26 16:09] LABS: Endomysial Antibody IgA Negative (Negative)
[2022-05-27 15:51] LABS: Immunoglobulin A 131 mg/dL (87-352); t-Transglutaminase IgA <2 U/mL (0-3)
[2022-05-27 16:18] LABS: Anti-dsDNA Ab <1 IU/mL (0-9)
[2022-05-30 17:07] LABS: Albumin 4.1 g/dL (2.9-4.4); Alpha-1-Globulins 0.2 g/dL (0.0-0.4); Alpha-2-Globulins 0.7 g/dL (0.4-1.0); Cytoplasmic Ab (C-ANCA) <1:20 titer (Neg:<1:20); Gamma Globulin 0.9 g/dL (0.4-1.8); Immunoglobulin A 136 mg/dL (87-352); Immunoglobulin E 29 IU/mL (6-495); Immunoglobulin G 901 mg/dL (586-1602); Immunoglobulin M 69 mg/dL (26-217)
[2022-05-31 11:28] LABS: Perinuclear Ab (P-ANCA) <1:20 titer (Neg:<1:20)
== END | disposition home or self-care (01) ==
PROVIDERS: PCP Student in an Organized Health Care Education/Training Program; Referring Provider Internal Medicine Gastroenterology; Visit Provider Internal Medicine Gastroenterology
DX: R10.9 Unspecified abdominal pain (principal); G89.29 Other chronic pain
CPT/HCPCS: 36415; 80053; 82784; 82785; 83516; 83615; 84165; 85025; 85652; 86140; 86225; 86235; 86255; 86256; 86334

== ENCOUNTER → 2022-06-02 | Outpatient (CLI) | payer OTHER, SELFPAY ==
[2022-06-10 09:43] LABS: Calprotectin, Stool <16 ug/g (0-120)
== END | disposition home or self-care (01) ==
LOC: LAB 11:19
PROVIDERS: PCP Student in an Organized Health Care Education/Training Program; Referring Provider Internal Medicine Gastroenterology; Visit Provider Internal Medicine Gastroenterology
DX: R10.9 Unspecified abdominal pain (principal); G89.29 Other chronic pain
CPT/HCPCS: 83630; 83993